=== PATIENT | male | born 1980 | race Caucasian/White ===

== ENCOUNTER 2016-05-22 10:37 | Inpatient (IN) | payer OTHER ==
[~2016-05-22] VITALS: Ht 172.7 cm; Wt 134.7 kg
[~2016-05-22 10:37] MED LIST: LISINOPRIL10 MG PO; PERCOCET 5/31 TABLET PO; TRAMADOL HCL50 MG PO; ZOFRAN ODT4 MG PO
[2016-05-22 11:31] LABS: HEMATOCRIT 47.2 % (38.0-50.0); MCH 31.6 PG (29.0-34.0); MCHC 35.4 G/DL (30.0-36.0); MCV 89.4 FL (86-99); MEAN PLAT.VOLUME 11.6 uM^3 (9.0-12.4); PLATELET COUNT 189 K/uL (156-360); RBC DIS.WIDTH-CV 12.6 % (11.8-14.6); RBC DIS.WIDTH-SD 41.1 % (39-53); RED BLOOD COUNT 5.28 M/uL (4.00-5.50); WHITE BLOOD COUNT 12.3 K/uL (4.1-10.2)
[2016-05-22 11:40] LABS: CHLORIDE 108 mEq/L (99-109); POTASSIUM 3.9 mEq/L (3.7-5.4); SODIUM 142 mEq/L (136-147)
[2016-05-22 11:42] LABS: GLUCOSE 171 mg/dL (70-99)
[2016-05-22 11:43] LABS: ANION GAP 10 MEQ/L (2-14)
[2016-05-22 11:44] LABS: TOTAL BILIRUBIN 2.2 mg/dL (0.0-1.0)
[2016-05-22 11:46] LABS: ALKALINE PHOSPHATASE 119 IU/L (3-129); GFR ESTIMATE (CALCULATED) > 59 mL/min/
[2016-05-22 11:47] LABS: UREA NITROGEN (BUN) 15 mg/dL (9-23)
[2016-05-22 11:49] LABS: LIPASE > 1055 U/L (1.0-51.0)
[2016-05-22 11:52] LABS: ADD MIUA? YES; BILIRUBIN NEGATIVE; BLOOD NEGATIVE; COLOR YELLOW ((YELLOW)); GLUCOSE (STRIP) NEGATIVE; KETONES 5; LEUKOCYTES NEGATIVE; NITRITE NEGATIVE; PROTEIN (STRIP) 30; SPECIFIC GRAVITY 1.018 (1.000-1.030); UROBILINOGEN 0.2 MG/DL (0.2-1.0)
[2016-05-22 12:12] LABS: BACTERIA RARE /HPF; EPITHELIAL CELLS RARE /HPF; MUCUS NONE SEEN /LPF; RED BLOOD CELLS 0-5 /HPF (0-5); UCUL ADDED? NO
[2016-05-22] MEDS ORDERED: CHEWABLE-VITE1 EACH PO (14:43)
[2016-05-22] MEDS ORDERED: OMEPRAZOLE40 M1 PO (14:43)
[2016-05-22] MEDS ORDERED: ALTACHLORE BOTH EYES (14:44)
[2016-05-22] MEDS ORDERED: VENTOLIN HFA18 GM IH (14:44)
[2016-05-22] MEDS ORDERED: MOTRIN800 MG PO (14:45)
[2016-05-22 18:49] VITALS: BP 130/70
[2016-05-22 23:22] VITALS: BP 122/67
[2016-05-23 07:07] LABS: ALKALINE PHOSPHATASE 91 IU/L (3-129); ANION GAP 7 MEQ/L (2-14); CHLORIDE 108 MEQ/L (99-109); GFR ESTIMATE (CALCULATED) > 59 mL/min/; HEMATOCRIT 43.3 % (38.0-50.0); LIPASE 39 U/L (1.0-51.0); MCHC 34.4 G/DL (30.0-36.0); MCV 92.9 FL (86-99); MEAN PLAT.VOLUME 12.4 uM^3 (9.0-12.4); PLATELET COUNT 168 K/uL (156-360); POTASSIUM 4.2 MEQ/L (3.7-5.4); RBC DIS.WIDTH-CV 12.8 % (11.8-14.6); RBC DIS.WIDTH-SD 43.5 % (39-53); RED BLOOD COUNT 4.66 M/uL (4.00-5.50); SAMPLE HEMOLYSIS CHECK 0; SAMPLE ICTERIC CHECK 0; SAMPLE LIPEMIA CHECK 0; SODIUM 142 MEQ/L (136-147); TOTAL BILIRUBIN 1.5 MG/DL (0.0-1.0); UREA NITROGEN (BUN) 10 mg/dL (9-23); WHITE BLOOD COUNT 7.4 K/uL (4.1-10.2)
[2016-05-23 07:29] LABS: GLUCOSE 78 mg/dL (70-99)
[2016-05-23 07:53] VITALS: BP 141/88
[2016-05-23 14:20] VITALS: BP 129/86
[2016-05-23 16:25] LABS: POINT-OF-CARE METER ID UU13113675; POINT-OF-CARE USER ID 515036437
[2016-05-23 18:00] VITALS: BP 134/86
[2016-05-23 23:45] VITALS: BP 125/64
[2016-05-24 03:41] VITALS: BP 106/57
[2016-05-24 06:18] LABS: HEMATOCRIT 41.9 % (38.0-50.0); MCH 30.6 PG (29.0-34.0); MCHC 33.4 G/DL (30.0-36.0); MCV 91.5 FL (86-99); PLATELET COUNT 181 K/uL (156-360); RBC DIS.WIDTH-CV 12.6 % (11.8-14.6); RED BLOOD COUNT 4.58 M/uL (4.00-5.50)
[2016-05-24 06:25] LABS: WHITE BLOOD COUNT 9.9 K/uL (4.1-10.2)
[2016-05-24 06:29] LABS: ALKALINE PHOSPHATASE 78 IU/L (3-129); ANION GAP 6 MEQ/L (2-14); CHLORIDE 108 MEQ/L (99-109); GFR ESTIMATE (CALCULATED) > 59 mL/min/; POTASSIUM 4.4 MEQ/L (3.7-5.4); SAMPLE HEMOLYSIS CHECK 0; SAMPLE ICTERIC CHECK 0; SAMPLE LIPEMIA CHECK 0; SODIUM 138 MEQ/L (136-147); UREA NITROGEN (BUN) 6 mg/dL (9-23)
[2016-05-24 06:31] LABS: GLUCOSE 149 mg/dL (70-99)
[2016-05-24 07:38] VITALS: BP 126/68
[2016-05-24 12:35] VITALS: BP 133/79
[2016-05-24 16:48] VITALS: BP 149/98
[2016-05-24] MEDS ORDERED: OXAYDO5 MG PO (16:58)
== END 2016-05-24 18:12 | disposition home or self-care (01) | DRG 418 ==
LOC: EME → EDBD 10:37 → EDOF 15:59 → 5EAST 15:59
PROVIDERS: Emergency Medicine; Internal Medicine; Surgery
PROC: 0FT44ZZ Resection of Gallbladder, Percutaneous Endoscopic Approach (ICD-10-PCS; principal; 2016-05-23)
DX: K85.10 Biliary acute pancreatitis without necrosis or infection (principal); K80.10 Calculus of gallbladder with chronic cholecystitis without obstruction; Z68.41 Body mass index [BMI] 40.0-44.9, adult; E86.0 Dehydration; R55 Syncope and collapse; I10 Essential (primary) hypertension; E11.9 Type 2 diabetes mellitus without complications; K21.9 Gastro-esophageal reflux disease without esophagitis; J45.909 Unspecified asthma, uncomplicated; G89.29 Other chronic pain; M54.9 Dorsalgia, unspecified; E66.01 Morbid (severe) obesity due to excess calories; Z98.84 Bariatric surgery status
CPT/HCPCS: 76705; 80053; 81003; 82948; 83690; 85027; 88304; 93005; 99202; 99281; 99285; C9113; J0330; J1100; J1170; J1650; J1885; J2175; J2405; J2710; J3010; J7030